=== PATIENT | female | born 1955 | race Caucasian/White ===

== ENCOUNTER 2024-01-01 03:29 | Emergency (ER) | payer BC, SELFPAY ==
[2024-01-01 03:34] VITALS: BP 159/81; PULSE 76; RESP 20; TEMP 37.2; O2SAT 99; BMI 21.8
--- NOTE | 2024-01-01 03:43 | CT_ITS ---
Patient: RADHA YBRD Facility:?[facility] Patient ID:?[id number] Site Patient ID:?[id number]. Site :?[id number] Study:?CT-Head W/O-01/01/2024 3:59:39 AM Ordering Physician:NOEMI Final Report: INDICATION: PAIN BEHIND EYES TECHNIQUE: CT head without contrast. COMPARISON: None. FINDINGS: CSF spaces: Within normal limits for age. Brain parenchyma and extra-axial spaces: The johnson-white differentiation is normal. No sign of mass effect, hemorrhage, or midline shift. No extra-axial fluid collection. Skull base and calvarium: Complete chronic opacification of the right maxillary sinus as well as the right anterior ethmoid and frontal sinuses. Large mucosal retention cyst within the left maxillary sinus. The visualized orbits are grossly unremarkable. No skull fractures. Carotid siphon atherosclerotic calcifications. IMPRESSION: 1. No evidence of acute intracranial abnormality on this unenhanced CT. 2. Complete chronic opacification of the right maxillary sinus as well as the right anterior ethmoid and frontal sinuses. Large mucosal retention cyst within the left maxillary sinus. Please note that all CT scans at this facility use dose modulation, iterative reconstruction, and/or weight-based dosing when appropriate to reduce radiation dose to as low as reasonably achievable. Dictated by Alcon Green MD @ 01/01/2024 4:07:06 AM Signed by:?Alcon Green MD @01/01/2024 4:07:06 AM (Electronic Signature)
--- NOTE | 2024-01-01 03:45 | ED_ITS ---
HPI - General Adult General Date Seen: 01/01/24 Chief complaint: Eye Problems Stated complaint: eye and ear pain Time Seen by Provider: 01/01/24 03:34 Source: patient, RN notes reviewed and old records reviewed Mode of arrival: ambulatory Limitations: no limitations History of Present Illness HPI narrative: Patient is a 68-year-old woman who presents for evaluation of pain behind her right eye. She says this is been present for a couple of days and now is radiating to the right ear. She rates it as severe. She denies any visual complaints. She thinks she has a sinus infection. She says her temperature has been running 102 at home. She has not really had any nasal congestion, denies sore throat or cough. She says ibuprofen helps control the symptoms but wears off after 6-8 hours. She came in overnight tonight because the pain was now radiating to her ear. Related Data Home Medications Medication Instructions Recorded Confirmed lifitegrast 5 % eye drops in a 1 drp ophthalmic (eye) BID 10/04/23 01/01/24 dropperette (Xiidra) Allergies Allergy/AdvReac Type Severity Reaction Status Date / Time No Known Drug Allergies Allergy Verified 01/01/24 03:37 Review of Systems Status of ROS: Reports: 6 or more systems reviewed and unremarkable except as noted in History and below PFSH [facility] Medical History Dry eye ?H04.129 - Dry eye syndrome of unspecified lacrimal gland (ICD-10) Surgical History History of cataract surgery (2013) ?Z98.49 - Cataract extraction status, unspecified eye (ICD-10) History of umbilical hernia repair ?Z98.890 - Other specified postprocedural states (ICD-10) ?Z87.19 - Personal history of other diseases of the digestive system (ICD-10) History of placement of ear tubes ?Z96.22 - Myringotomy tube(s) status (ICD-10) History of dental surgery ?Z92.89 - Personal history of other medical treatment (ICD-10) History of tubal ligation ?Z98.51 - Tubal ligation status (ICD-10) Family History Aunt Breast cancer, Onset Age: 65 Mother Alcohol dependence Father Lung cancer Social History Narrative: , 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 In general, an alert, nontoxic woman para Head: Normocephalic, atraumatic. Eyes: Pupils are equal reactive. Extraocular movements are full. No ophthalmoplegia. Conjunctivae are normal. No surrounding erythema or edema. ENT: Mucous membranes are moist. Throat is normal. TMs normal bilaterally. Neck: Supple without lymphadenopathy. Heart: Regular rate and rhythm. No murmur or rub. Lungs: Clear bilaterally. No increased work of breathing, crackles or wheezes. Abdomen: Soft and nontender. No organomegaly. Extremities: Well perfused. No edema. No calf tenderness. Pulses intact. Neurologic: Patient is alert and oriented to person and place. Speech is fluent. Face is symmetric. Moves all extremities equally. Affect: Normal. Skin: Warm and dry. Well perfused. Const: Vital Signs, click to edit/add: Vital Signs - 24 hr 01/01/24 03:34 01/01/24 03:56 01/01/24 04:18 Temperature 99.0 F 99.0 F 99.0 F Pulse Rate [Right Pulse Oximeter] 76 79 Respiratory Rate 20 20 Blood Pressure [Ri ght Upper Arm] 159/81 H 145/78 H Pulse Oximetry 99 99 Oxygen Delivery Me thod Room Air Room Air 01/01/24 04:19 01/01/24 04:20 Temperature 99.0 F 99.0 F Pulse Rate [Right Pulse Oximeter] 79 Respiratory Rate 20 Blood Pressure [Ri ght Upper Arm] 145/78 H Pulse Oximetry Oxygen Delivery Me thod Documenting provider has reviewed patient's vital signs: yes Course Course ED Course: Patient presents with pressure in pain behind her right eye, concerned about sinus infection. Reports fever at home. Not a lot of other symptoms to suggest sinus infection, therefore I suggested that we do a head CT just to get a look at her sinuses. Will give some Toradol, also check a COVID, influenza given reports of fever at home. She is nontoxic in appearance, exam is otherwise unremarkable. She does not have any evidence of periorbital or preseptal cellulitis, conjunctivitis, ocular trauma, hyphema, or other findings. CT scan does show opacification of the maxillary, ethmoid and frontal sinuses on the right. Radiology reads this as chronic. There are no intracranial findings. She has a mucoid retention cyst on the left. I have reviewed all this with her. She may have sort of an acute on chronic sinusitis and will go ahead and treat with Augmentin. I have encouraged her to follow up with ENT if she does not feel better over the next 48 hours. Return at any time for acute worsening. Vital Signs Vital signs: Initial Vital Signs Temperature 99.0 F 01/01/24 03:34 Temperature Source Temporal Artery Scan 01/01/24 03:34 Pulse Rate 76 01/01/24 03:34 Respiratory Rate 20 01/01/24 03:34 Blood Pressure 159/81 H 01/01/24 03:34 Blood Pressure Mean 107 H 01/01/24 03:34 Blood Pressure Position Sitting 01/01/24 03:34 Pulse Oximetry 99 01/01/24 03:34 Oxygen Delivery Method Room Air 01/01/24 03:34 Vital Signs Temperature 99.0 F 01/01/24 03:34 Pulse Rate 76 01/01/24 03:34 Respiratory Rate 20 01/01/24 03:34 Blood Pressure 159/81 H 01/01/24 03:34 Pulse Oximetry 99 01/01/24 03:34 Oxygen Delivery Method Room Air 01/01/24 03:34 Temperature 99.0 F 01/01/24 04:20 Pulse Rate 79 01/01/24 04:19 Respiratory Rate 20 01/01/24 04:19 Blood Pressure 145/78 H 01/01/24 04:19 Pulse Oximetry 99 01/01/24 04:18 Oxygen Delivery Method Room Air 01/01/24 04:18 Medications Administered Medications: Discontinued Medications Generic Name Dose Route Start Last Admin Trade Name Freq PRN Reason Stop Dose Admin Ketorolac Tromethamine 30 mg 01/01/24 03:43 01/01/24 03:56 Ketorolac 30 Mg/Ml Inj IM 01/01/24 03:44 30 mg ONCE ONE Administration Medical Decision Making Lab Data Labs: Lab Results 01/01/24 Range/Units 03:55 SARS-CoV-2 (PCR) Negative SARS-CoV-2 (Negative) Influenza Type A (PCR) Negative PCR FLU A (Negative) Influenza Type B (PCR) Negative PCR FLU B (Negative) RSV (PCR) Negative PCR RSV (Negative) Discharge Plan Discharge Clinical Impression: Sinusitis, chronic Patient Disposition: Home, Self-Care Condition: Stable Instructions: Sinusitis (ED) Additional Instructions: Antibiotic as prescribed. See ENT this week if not improving. Ibuprofen 400 mg plus Tylenol 1000 mg three times daily with food as needed for pain. Prescriptions: No Action Xiidra 5 % dropperette 1 drp ophthalmic (eye) BID Rx Instructions: administer approximately 12 hours apart Follow Up/Referrals: Rebeka Michelle MD [Primary Care Provider] - Stand Alone Forms: [employer]th Info Instructions
[2024-01-01 03:56] VITALS: TEMP 37.2
[2024-01-01] MEDS: KETOROLAC 30 MG/ML inj IM (03:56)
[2024-01-01 04:18] VITALS: BP 145/78; PULSE 79; RESP 20; TEMP 37.2; O2SAT 99
[2024-01-01 04:19] VITALS: BP 145/78; PULSE 79; RESP 20; TEMP 37.2
[2024-01-01 04:20] VITALS: TEMP 37.2
[2024-01-01 04:48] LABS: PCR FLU A Negative PCR FLU A (Negative); PCR FLU B Negative PCR FLU B (Negative); PCR RSV Negative PCR RSV (Negative); SARS PCR* Negative SARS-CoV-2 (Negative)
== END 2024-01-01 04:20 | disposition home or self-care (01) ==
PROVIDERS: Emergency Provider Emergency Medicine; PCP Family Medicine
DX: J32.9 Chronic sinusitis, unspecified (principal)
CPT/HCPCS: 70450; 87631; 96372; 99284; J1885

== ENCOUNTER 2024-03-13 07:00 | Day surgery (SDC) | payer BC, SELFPAY ==
[2024-03-13] VITALS (33 sets, daily range): BP systolic 100–129; BP diastolic 53–85; PULSE 52–77; RESP 12–16; TEMP 35.2–37; O2SAT 93–100; BMI 20.9
[2024-03-13 07:52] LABS: Hemoglobin* 14.2 gm/dL (12.0-16.0)
[2024-03-13] MEDS: SODIUM CHLORIDE 0.9 % (FLUSH) 10 ML SYRINGE IVF (07:55)
[2024-03-13] MEDS: LACTATED RINGERS 1000 ML 1,000 ML 100 ML IV (07:55)
[2024-03-13 08:06] LABS: Creatinine* 0.8 mg/dL (0.5-1.5); Est. Creatinine Clearance* 50.07; Estimated Glomerular Filt Rate 80 ml/min
[2024-03-13] MEDS: CEFAZOLIN 2 GM INJ IVP (08:52)
[2024-03-13] MEDS: LACTATED RINGERS 1000 ML 1,000 ML 30 ML IV (09:11)
[2024-03-13] MEDS: FLUORESCEIN 10% INJ 500 MG IVP (09:27)
--- NOTE | 2024-03-13 09:29 | W.ANESCHARGE ---
Anesthesia Charges Start Date/Time Anesthesia Start Date: 03/13/24 Anesthesia Start Time: 08:35 Stop Date/Time Anesthesia Stop Date: 03/13/24 Anesthesia Stop Time: 11:08
--- NOTE | 2024-03-13 10:07 | SUR.OPER ---
03/13/2024--indwelling perea-16 FR/10cc balloon, placed by dr. elena at 0903. clear/yellow urine return.
[2024-03-13] MEDS: LIDOCAINE 1 % PF 30 ML INJECTION (10:29)
[2024-03-13] MEDS: ESTROGENS, CONJUGATED VAGINAL 0.625 MG/G CREAM 1 APPLIC VAGINAL (10:44)
--- NOTE | 2024-03-13 11:04 | W.ANESCHARGE ---
Anesthesia Charges Start Date/Time Anesthesia Start Date: 03/13/24 Anesthesia Start Time: 08:35 Stop Date/Time Anesthesia Stop Date: 03/13/24 Anesthesia Stop Time: 11:08
--- NOTE | 2024-03-13 11:05 | P.GYNPRC_ITS ---
Procedure Note Time Seen by Provider: 14:46 Date of procedure: 03/13/[address] [facility] bill your pro fee for this procedure?: Yes Pre-op diagnosis: Pelvic Organ Prolapse Post-op diagnosis: Pelvic Organ Prolapse Procedure: Total vaginal hysterectomy Right salpingo-oophorectomy Noreen culdoplasty Anterior colporrhaphy Diagnostic cystoscopy Anesthesia: MAC and spinal Complications: None Surgeon: Karine Blanchard MD Home Appliance Washing Machine Mechanic: Lyndsey Pop Estimated blood loss (mL): 25 IV fluids (mL): 1,400 Urine Output (mL): 200 Pathology: specimen obtained, sent to pathology Condition: stable Disposition: observation Findings: Stage 3 uterine prolapse Stage 2 anterior prolapse Unremarkable right fallopian tube and ovary Left ovary appeared unremarkable but was noted to be high in the pelvis with some physiologic adhesion between it and sigmoid colon Negative diagnostic cystoscopy Procedure Description: Procedure in detail: Patient was taken to the operating room with IV running. Spinal anesthesia was administered. She received cefazolin in preoperative prophylaxis. She was positioned in dorsal lithotomy position with her legs in candy-cane stirrups. Exam under anesthesia was performed for the above noted findings. Perea catheter was inserted. Weighted speculum was inserted. Cervix was grasped along its anterior and posterior lips with double tooth tenaculum. Vaginal corners were marked with incisions at 3 and 9 o'clock. The cervical vaginal junction was then incised circumferentially with scalpel. Pickups with teeth was utilized to elevate the anterior vaginal epithelium, where Stephens scissors were utilized to access the vesicouterine reflection, developed with gentle blunt dissection. Nik retractor was introduced. The peritoneum was grasped and incised with Stephens scissors, then extended. Nik retractor was introduced into the peritoneal cavity, right angle Nik retractor was additionally utilized to confirm visualization of intra-abdominal contents. Attention was then turned to the posterior colpotomy, where posterior vaginal mucosa was grasped and put on traction. Posterior cul-de-sac was entered without difficulty with Stephens scissors and extended laterally. A long weighted speculum was placed in the cul-de-sac. The vaginal epithelium was dissected bluntly off bilateral uterosacral ligaments. Bilateral uterosacral ligaments were clamped, cut, suture ligated with 0 Vicryl, and tagged for later identification. The right ureter was palpated to ensure it was free of planned area of transection of the cardinal ligament. The right cardinal ligament was then serially clamped, cut, and suture ligated in 2 bites with 0 Vicryl. The same procedure was completed on the left. Anterior cervical tenaculum was removed and placed on the posterior uterus to flip the uterine body out. Left hand was placed across the right utero-ovarian ligament to ensure the bowel was adequately protected, where the utero-ovarian ligament was subsequently clamped, cut and suture ligated with 0 Vicryl. The same procedure was performed on the right. The uterus and cervix removed and sent for pathologic evaluation. Hemostasis was achieved as needed across the vaginal cuff with electrocautery. The bowel was packed out of the pelvis to allow for visualization of the bilateral adnexa. The right fallopian tube remnant and ovary were grasped with an Allis. Ligasure was utilized to serially coagulate then transect the right ovarian vessels. The right tube and ovary were removed via the vagina. The left tube and ovary could not be visualized. Bowel pack was removed to further assess, where they were noted to be high in the pelvis with mild thin adhesions between left adenxa and sigmoid colon, likely physiologic. Decision was made to leave the left tubal remnant and ovary due to risk of bleeding with their high position. The patient was put into steep Trendelenburg and the bowel was packed out of the pelvis. An internal modified Sorto's suture was first placed with 0 vicryl, where the left uterosacral sacral was put on tension then grasped 2.5cm above the cuff, reefed across the posterior peritoneum. The right uterosacral was put on tension and again grasped 2.5cm above the cuff. Suture tails were tagged with a straight clamp. An external modified Sorto was then placed with 0 vicryl. Stitch was applied through the posterior vaginal mucosa at site of former wedge creation on the left, suspended at left uterosacral about 2cm above the cuff, reefed across the peritoneum and suspected along the right uterosacral at 2cm above the cuff, and finally through the right posterior vaginal mucosa. A curved Nik clamp was tagged on these suture tails. Perea catheter was removed and diagnostic cystoscopy was performed. Patient was administered IV sodium fluorescein to aid in visualization of ureteral jets. Bladder survey was negative and bilateral ureteral jets were visualized. The internal Sorto was then tied and tagged. Diagnostic cystoscopy was again performed demonstrating bilateral ureteral efflux. Internal Sorto suture was cut. The external Sorto was then tied and tagged. Diagnostic cystoscopy again demonstrated bilateral ureteral efflux. External Sorto suture was then cut. Thereafter, the vaginal epithelium was closed in an interrupted fashion with 0 vicryl, incorporating the distal most aspects of the uterosacral ligaments into the cuff angle closures. Vaginal cuff was noted to be hemostatic and intact. Cystoscopy was performed, again revealing bilateral ureteral jets. Exam under anesthesia was then performed, where stage 2 anterior prolapse was noted but minimal posterior prolapse was noted. Decision was made to proceed with anterior colporrhaphy. Perea catheter was reinserted. Bladder neck was elba ntified with mobilization of perea balloon, where Allis clamp was applied to vaginal mucosa just proximal. Katharine clamps were utilized to grasp the mid right and left cuff margins. The anterior vaginal wall was infiltrated with 10mL of 1% lidocaine. Incision was made from just below the bladder neck to vaginal cuff. The vaginal epithelium was dissected off the fibromuscularis beneath it with a combination of sharp and blunt dissection bilaterally. The fibromuscularis was then plicated in the midline with interrupted sutures of 2-0 Vicryl. The vaginal epithelium was trimmed slightly on the each side, and the vaginal epithelium was closed with a running stitch of 2-0 Vicryl. A final cystoscopy was performed, where full bladder survey was again negative and bilateral ureteral efflux was again demonstrated. Perea was reinserted. Vaginal packing was coated in Premarin and inserted vaginally. Distal end was left out of the vagina for removal tomorrow morning. The patient tolerated the procedure well and was taken to recovery area in stable condition.
--- NOTE | 2024-03-13 11:16 | W.PM.GYNPROC ---
Procedure Note Date of procedure: 03/13/24 Will [facility] bill your pro fee for this procedure?: Yes Procedure Description: PREOPERATIVE DIAGNOSIS: Pelvic prolapse. POSTOPERATIVE DIAGNOSIS: Pelvic prolapse. PROCEDURE: Total vaginal hysterectomy, Sorto's culdoplasty, right salpingo oophorectomy, anterior repair, cystoscopy. SURGEON: Santo LABELLING MACHINE OPERATOR: Kiesha ANESTHESIA: General endotracheal COMPLICATIONS: None ESTIMATED BLOOD LOSS: See operative report by Dr. Blanchard FINDINGS: Uterine prolapse, cystocele, normal-appearing ovaries bilaterally. PROCEDURE NOTE: Please see the operative report by Dr. Blanchard for full details of the procedure. I was asked to assist. I was scrubbed in for the entire procedure until placement of the vaginal packing. I provided assistance with visualization and retraction during the hysterectomy, culdoplasty and right salpingo oophorectomy.
--- NOTE | 2024-03-13 11:40 | SUR.PHASEI ---
patient meets pacu d/c criteria
[2024-03-13] MEDS: KETOROLAC 30 MG/ML inj IVP ×2 (12:29→18:10)
[2024-03-13] MEDS: ONDANSETRON 2 MG/ML inj 4 MG IVP (18:10)
--- NOTE | 2024-03-13 20:17 | PC.NURSE ---
End of shift - Pt arrived from PACU at approximately 1135. Pt awake, oriented, cooperative and drowsy. Denied pain, SOB, dizziness. Pt tolerating RA, regular diet and ice chips. Pt experienced brief episode of nausea and emesis when changing positions. RN offered anti-nausea medication, pt refused. Episode passed and pt was able to eat without further nausea. Pt experienced second episode of nausea, accepted anti-nausea medication per MAR with reported relief. Cheek catheter noted to be patent and draining. Family at bedside, pt appears to be resting comfortably at end of shift.
[2024-03-13] MEDS: IBUPROFEN 600 MG TABLET PO (22:33)
[2024-03-14] VITALS (12 sets, daily range): BP systolic 95–101; BP diastolic 51–53; PULSE 64–76; RESP 16–24; TEMP 36.1–36.4; O2SAT 99–100
[2024-03-14] MEDS: IBUPROFEN 600 MG TABLET PO ×2 (03:55→10:00)
[2024-03-14 06:28] LABS: Hemoglobin* 12.3 gm/dL (12.0-16.0)
--- NOTE | 2024-03-14 07:15 | PC.NURSE ---
End of shift [id number]: A&O pleasant and cooperative.? Denies pain. Dangled and stood at bedside. Tolerated well. Denied any lightheaded/dizziness. Screed Person encouraged pt to increase fluid intake.
--- NOTE | 2024-03-14 07:50 | PM.GYNDS1 ---
DS: Providers Provider Time Seen by Provider: 07:30 Date Seen: 03/14/24 Date of admission: 03/13/24 16:12 Primary care physician: Rebeka Michelle MD Admitting Clinician: Agustina Coleman MD Attending Physician on discharge: Blanca Blanchard MD CHEMICAL PLANT MANAGER-Discharge Summary Hospital Course Hospital Course Narrative: Patient is a 68 year old admitted on 03/13/2024 for postoperative cares following total vaginal hysterectomy, right salpingo-oophorectomy, anterior colporrhaphy and diagnostic cystoscopy. Indication for surgery: Pelvic organ prolapse. Intraoperative findings were notable for uterine and anterior prolapse, see operative note for details. She had an uncomplicated surgery. Postoperative course has been uneventful. Vitals have been stable. She has remained afebrile. Today, on postoperative day 1, she reports the pain is well controlled. She has been up to stand at the edge of the bed several times without dizziness or lightheadedness. She has not yet ambulated. She is tolerating regular diet without nausea or vomiting. She is passing flatus. Vaginal packing and Cheek catheter have not yet been removed. Pending successful ambulation and void trial, plan to discharge to home later this morning or early afternoon. Addendum at 1100: patient has had successful void trial - backfilled 300 and voided entire volume. She is ambulating without difficultly and meeting post-op milestones. Plan to discharge to home. Time Spent with Patient Time attestation: Total time spent providing and/or coordinating discharge services: Time spent: Less than 30 minutes CHEMICAL PLANT MANAGER - Exam Physical Exam: Vital signs: Temp Pulse Resp BP Pulse Ox O2 Del Method 97.5 F L 64 16 95/53 L 100 Room Air 03/14/24 03:52 03/14/24 03:52 03/14/24 06:29 03/14/24 03:52 03/14/24 03:52 03/14/24 03:52 Narrative: General: Alert and oriented, in no acute distress Abdomen: Soft, nondistended. Minimal tenderness to palpation in the lower abdomen consistent with postoperative state. No rebound or guarding throughout. Pelvic: Vaginal packing removed, minimal serosanguineous staining noted. Extremities: Nontender, non erythematous. SCDs in place. CHEMICAL PLANT MANAGER - DS: Data Data Completed and Pending Labs on day of discharge: Labs from last 24 hours 03/14/24 03/13/24 06:00 07:40 Hgb 12.3 14.2 Creatinine 0.8 Estimated Creat Clear 50.07 Estimated GFR 80 Blood Type A Positive Antibody Screen NEGATIVE Procedures Procedures: Procedures Operation Date: 03/13/24 08:15 Actual Procedure Side Surgeon p M/S - Total Vaginal Hysterectomy, Right Salpingo-Oophorectomy, Anterior Repair, Cystoscopy Right Blanca Blanchard MD Discharge Plan Discharge Disposition: Home w/ Parent or Adult Discharging Surgeon: Blanca Blanchard Follow-Up Appointment: 2 and 6 week post-op visits in [facility] Prescriptions: New oxycodone 5 mg Tablet 5 mg PO Q6H PRN (Reason: Moderate Pain) Qty: 10 0RF estradiol 0.01 % (0.1 mg/gram) cream 1 g vaginal 3XW Qty: 42.5 0RF Continued Xiidra 5 % dropperette 1 drp ophthalmic (eye) BID Rx Instructions: administer approximately 12 hours apart Additional Instructions: Lifting restrictions: Please do not lift more than 15lbs for 6 weeks Sexual restriction: Pelvic rest for 6 weeks Pain control: Over the counter Motrin 600 mg by mouth every six hours on a full stomach for pain as needed Over the counter Acetaminophen 1000 mg by mouth every six hours on a full stomach for pain as needed Oxycodone 5mg every 4 hours as needed for breakthrough pain Please call with: - Heavy vaginal bleeding - Increasing or severe abdominal pain - Fevers/chills - Inability to tolerate solid/liquids by mouth, recurrent nausea/vomiting - Incision redness/drainage - Signs or symptoms of a blood clot - calf pain, redness, swelling, chest pain or shortness of breath Post-op visits at 2 and 6 weeks. Forms: [facility] Info Instructions Follow-up: Rebeka Michelle MD [Primary Care Provider] - Discharge Orders: Discharge Order (Routine); Ordered 03/14/24 Ordered By: Blanca Blanchard
--- NOTE | 2024-03-14 16:19 | PC.NURSE ---
Discharge - Pt alert, oriented, pleasant and cooperative. Up independently in room, tolerating RA and regular diet/fluids. Pt denied pain, nausea, vomiting, SOB. IV removed with catheter intact. Discharge education given to pt with verbalized understanding. Pt discharged to home via wheelchair with spouse at approximately 1210.
== END 2024-03-14 12:10 | disposition home or self-care (01) ==
LOC: OR 07:03 → MEDSURG 07:05
PROVIDERS: PCP Family Medicine; Visit Provider Obstetrics & Gynecology
PROC: 0TJB8ZZ Inspection of Bladder, Via Natural or Artificial Opening Endoscopic (ICD-10-PCS; CPT 57260; principal; 2024-03-13 08:15)
DX: N81.3 Complete uterovaginal prolapse (principal)
CPT/HCPCS: 58263; 57240; 00944; 36415; 82565; 85018; 86850; 86900; 86901; 88307; A9270; J0690; J1100; J1170; J1885; J2001; J2250; J2274; J2371; J2405; J2704; J3010; J7120